=== PATIENT | female | born 1960 | race Caucasian/White ===

== ENCOUNTER 2019-05-06 15:47 | Emergency (ER) | payer BC ==
[2019-05-06 16:32] LABS: ABS Basophils 0.1 10^3/ul (0-0.2); ABS Eosinophils 0.1 10^3/ul (0-0.6); ABS Lymphocytes 2.1 10^3/ul (1.0-4.8); ABS Monocytes 0.6 10^3/ul (0-0.8); ABS Neutrophils 4.1 10^3/ul (1.5-7.7); Eosinophil % 1.6 %; Hematocrit 42 % (35-47); Hemoglobin 14.2 g/dL (12.0-16.0); Lymphocyte % 29.7 %; Mean Corpuscular HGB Conc 34 g/dL (31-36); Mean Corpuscular Hemoglobin 31 pg (27-31); Mean Corpuscular Volume 92 fL (80-97); Mean Platelet Volume 9.6 fL (7.4-10.4); Nucleated Red Blood Cells % 0.2; Platelet Count 188 10^3/uL (150-450); Red Blood Count 4.58 10^6 /uL (3.70-4.87); Red Cell Distribution Width 13 % (10-15)
[2019-05-06 16:38] LABS: INR 0.97 (0.82-1.09)
[2019-05-06 16:48] LABS: Albumin 4.6 g/dL (3.2-5.2); Albumin/Globulin Ratio 1.8 (1-3); BUN/Creatinine Ratio 24.7 (8-20); Calcium 10.1 mg/dL (8.6-10.3); EGFR African American 92.5 (>60); EGFR Non-African American 76.5 (>60); Globulin 2.6 g/dL (2-4); Total Bilirubin 0.7 mg/dL (0.2-1.0); Total Protein 7.2 g/dL (6.4-8.9)
--- NOTE | 2019-05-06 17:29 | ED ---
HPI Chest Pain - HPI Summary HPI Summary: A 58 y/o female presents to [facility] with a chief complaint of a dull chest pain and SOB for one week. Patient reports intermittent dull chest pain non exertional, as well as mild shortness of breath when she ambulates. Patient went to her primary care provider who did an EKG and sent her to the ED. Patient did not have EKG with her on arrival here. She denies any coughing, edema, dizziness or fatigue. She denies a Hx of SD, CHF or blood clots. She reports a FHx of cardiac disease, diabetes, blood clots. She is a former smoker , smoking 19 years ago. - History of Current Complaint Chief Complaint: EDChestPainROMI Time Seen by Provider: 05/06/19 17:11 Hx Obtained From: Patient Onset/Duration: Started Days Ago, Still Present Timing: Intermittent, Lasting Days Initial Severity: Mild Current Severity: Mild Pain Intensity: 0 Pain Scale Used: 0-10 Numeric Chest Pain Location: Diffuse Chest Pain Radiates: No Character: Dyspnea at Exertion Aggravating Factor(s): Exertion Alleviating Factor(s): Nothing Associated Signs and Symptoms: Positive: Shortness of Breath. Negative: Dizziness, Fever, Cough, Edema - Allergy/Home Medications Allergies/Adverse Reactions: Allergies Allergy/AdvReac Type Severity Reaction Status Date / Time No Known Allergies Allergy Verified 05/06/19 15:54 Home Medications: Home Medications [place]/D3/Mag11/Zinc/Mechanical Operator/Richard/Bor [Caltrate 600+D Plus] 1 tab PO DAILY 05/06/19 [ History Confirmed 05/06/19] Lisinopril TAB* [Prinivil TAB 5 MG*] 5 mg PO DAILY 05/06/19 [History Confirmed 05/06/19] [place]-3S/Dha/Epa/Fish Oil [Fish Oil 1,200 mg Softgel] 1 each PO DAILY 05/06/19 [ History Confirmed 05/06/19] Vitamin E CAP* 200 unit PO DAILY 05/06/19 [History Confirmed 05/06/19] PMH/Surg Hx/FS Hx/Imm Hx Endocrine/Hematology History: Denies: Hx Diabetes Cardiovascular History: Denies: Hx Myocardial Infarction - Cancer History Hx Chemotherapy: No Hx Radiation Therapy: No Infectious Disease History: No Infectious Disease History: Denies: Traveled Outside the [place] in Last 30 Days - Family History Known Family History: Positive: Cardiac Disease, Diabetes, Blood Disorder - Social History Alcohol Use: None Hx Substance Use: No Substance Use Type: Reports: None Smoking Status (MU): Former Smoker Review of Systems Negative: Fever, Fatigue Positive: Chest Pain Positive: Shortness Of Breath. Negative: Cough Negative: Edema Neurological: Negative - dizziness All Other Systems Reviewed And Are Negative: Yes Physical Exam - Summary Physical Exam Summary: Constitutional: Well-developed, Well-nourished, Alert. (-) Distressed Skin: Warm, Dry HENT: Normocephalic; Atraumatic Eyes: Conjunctiva normal Neck: Musculoskeletal ROM normal neck. (-) JVD, (-) Stridor, (-) Nuchal rigidity Cardio: Rhythm regular, rate normal, Heart sounds normal; Intact distal pulses; Radial pulses are 2+ and symmetric. (-) Murmur Pulmonary/Chest wall: Effort normal. (-) Respiratory distress, (-) Wheezes, (-) Rales Abd: Soft, (-) tenderness, (-) Distension, (-) Guarding, (-) Rebound Musculoskeletal: (-) Edema Lymph: (-) Cervical adenopathy Neuro: Alert, Oriented x3 Psych: Mood and affect Normal Triage Information Reviewed: Yes Vital Signs On Initial Exam: Initial Vitals Temp Pulse Resp BP Pulse Ox 97.8 F 71 20 145/74 100 05/06/19 15:53 05/06/19 15:53 05/06/19 15:53 05/06/19 15:53 05/06/19 15:53 Vital Signs Reviewed: Yes Diagnostics - Vital Signs Vital Signs Temp Pulse Resp BP Pulse Ox 05/06/19 15:53 97.8 F 71 20 145/74 100 - Laboratory Lab Results: Lab Results 05/06/19 05/06/19 05/06/19 Range/Units 16:19 16:19 16:19 WBC 7.0 (3.5-10.8) 10^3/uL RBC 4.58 (3.70-4.87) 10^6 /uL Hgb 14.2 (12.0-16.0) g/dL Hct 42 (35-47) % MCV 92 (80-97) fL MCH 31 (27-31) pg MCHC 34 (31-36) g/dL RDW 13 (10-15) % Plt Count 188 (150-450) 10^3/uL MPV 9.6 (7.4-10.4) fL Neut % (Auto) 59.0 % Lymph % (Auto) 29.7 % [place] % (Auto) 8.3 % Eos % (Auto) 1.6 % Baso % (Auto) 1.4 % Absolute Neuts (auto) 4.1 (1.5-7.7) 10^3/ul Absolute Lymphs (auto) 2.1 (1.0-4.8) 10^3/ul Absolute Monos (auto) 0.6 (0-0.8) 10^3/ul Absolute Eos (auto) 0.1 (0-0.6) 10^3/ul Absolute Basos (auto) 0.1 (0-0.2) 10^3/ul Absolute Nucleated RBC 0.0 10^3/ul Nucleated RBC % 0.2 INR (Anticoag Therapy) 0.97 (0.82-1.09) D-Dimer, Quantitative 241 H (Less Than 230) ng/mL Sodium 139 (135-145) mmol/L Potassium 4.0 (3.5-5.0) mmol/L Chloride 104 (101-111) mmol/L Carbon Dioxide 26 (22-32) mmol/L Anion Gap 9 (2-11) mmol/L BUN 19 (6-24) mg/dL Creatinine 0.77 (0.51-0.95) mg/dL Est GFR ( Amer) 92.5 (>60) Est GFR (Non-Af Amer) 76.5 (>60) BUN/Creatinine Ratio 24.7 H (8-20) Glucose 105 H (70-100) mg/dL Calcium 10.1 (8.6-10.3) mg/dL Total Bilirubin 0.70 (0.2-1.0) mg/dL AST 14 (13-39) U/L ALT 14 (7-52) U/L Alkaline Phosphatase 81 (34-104) U/L Troponin I 0.00 (<0.04) ng/mL Total Protein 7.2 (6.4-8.9) g/dL Albumin 4.6 (3.2-5.2) g/dL Globulin 2.6 (2-4) g/dL Albumin/Globulin Ratio 1.8 (1-3) Result Diagrams: 05/06/19 16:19 05/06/19 16:19 Lab Statement: Any lab studies that have been ordered have been reviewed, and results considered in the medical decision making process. - Radiology CXR Radiology Interpretation Completed By: Radiologist Summary of Radiographic Findings: Stigmata of probable obstructive lung disease. No acute pulmonary or cardiac process. evident. ED physician has reviewed this imaging report. - CT Chest/thorax CTA CT Interpretation Completed By: Radiologist Summary of CT Findings: 1. No visible acute pulmonary embolism. 2. No aortic dissection. ED physician has reviewed this imaging report. - EKG 15:49 Cardiac Rate: NL - 64 bpm EKG Rhythm: Sinus Rhythm Summary of EKG Findings: An EKG at 15:49 reveals normal sinus rhythm at 64 bpm, T-wave inversions in lead III. Re-Evaluation - Re-Evaluation First Eval Re-Evaluation Time: 19:30 Change: Improved - D/w patient negative CT findings of no pulmonary embolus and , troponin negative 2. EKG with T-wave inversions in lead 3 otherwise no abnormalities. Patient is low risk chest pain w heart score of two therefore will be discharged can schedule a stress test with her PCP or cardiology Chest Pain Course/Dx - Course Course Of Treatment: 58 y/o female presents with chest pain. Chest Pain DDX: The patient is well appearing, with stable vitals. Given the patient's clinical presentation, highest on differential is atypical CP vs PE. Although less likely, differential also includes the following: --Pneumothorax: Equal breath sounds, story inconsistent since gradual onset of symptoms. CXR shows no evidence of pneumothorax. Unlikely. --Mediastinitis or esophageal rupture: The history is not consistent, as the patient has had no recent history of significant wretching, instrumentation, or mediastinal surgeries. Unlikely. -- Aortic dissection: The patient does not describe the classical tearing chest pain radiating into the back, and the CXR does not show mediastinal widening or other signs of aortic dissection. Unlikely. --PE: Wells low risk, check D dimer. --ACS: The initial EKG shows no ischemic changes. The initial troponin is not elevated. Heart score - HEART Score. Based on a HEART score of 2 the patient has a low risk (<2% chance) of major adverse cardiac event within the next 6 weeks. I explained to the patient that based on the work-up today, her risk of heart attack is low and that he/she will be discharged with outpatient follow-up. Strict return precautions were discussed regarding worsening chest pain, new / atypical pain, shortness of breath, or any other serious concerns. Patient endorsed understanding and has no questions at this time. Source --. [place] BE, Six AJ, Som JAZZ, Ab MA, Mast EG, Jaimee A, Gustabo RF,. Wardeh AJ, Doug R, [place] R, Ninoska SH, van Shannon R, Yoana TP, van den Rinku F,. Em MJ, Jj JM, Lillian AW, Dodanita PA. A prospective validation of. the HEART score for chest pain patients at the emergency department. Int J. Cardiol. 2013 Jun 3;168(3):2153-8. 0-3: 2.5% risk of adverse cardiac event. In the HEART Score, these patients were discharged. (0.99% retrospective ) (1.7% prospective). 4-6: 20.3% risk of adverse cardiac event, suggesting admission to the hospital. 11.6% (16.6% prospective). =7: 72.7% risk of adverse cardiac event, suggesting early invasive measures with these patients. 65.2% (50.1% prospective) - Diagnoses Provider Diagnoses: Chest pain Discharge - Sign-Out/Discharge Documenting (check all that apply): Patient Departure - DC Patient Received Moderate/Deep Sedation with Procedure: No - Discharge Plan Condition: Stable Disposition: HOME Patient Education Materials: Chest Pain (ED) Referrals: Dionisio Gonzales MD [Primary Care Provider] - Jus Monsivais DO [Medical Doctor] - Additional Instructions: You were seen in the emergency department for chest pain. Your heart number was normal 2. Your CT did not show any evidence of blood clots. These call your primary care doctor to schedule stress test If any studies were not completed at the time of discharge you will be called with the relevant results. Please follow up with your primary care doctor in next 2-3 days and return to emergency department for worsening pain, trouble breathing, syncope or concerning symptoms. - Billing Disposition and Condition Condition: STABLE Disposition: Home - Attestation Statements Document Initiated by Scribe: Yes Documenting Scribe: Marcos Britt Provider For Whom Scribe is Documenting (Include Credential): Gurvinder Mae MD Scribe Attestation: I, Marcos Britt, scribed for Gurvinder Mae MD on 05/06/19 at 1938. Scribe Documentation Reviewed: Yes Provider Attestation: The documentation as recorded by the [email or web address] accurately reflects the service I personally performed and the decisions made by me, Gurvinder Mae MD Status of Scribe Document: Viewed
[2019-05-06] MEDS ORDERED: Iohexol 350* (CONTRAST) 500 ML MDV IV ONE (18:03)
[2019-05-06 20:42] VITALS: BP 154/79
== END 2019-05-06 20:41 | disposition home or self-care (01) ==
LOC: ED 15:47
DX: R07.9 Chest pain, unspecified (principal); Z87.891 Personal history of nicotine dependence; Z79.899 Other long term (current) drug therapy
CPT/HCPCS: 36415; 71046; 71275; 80053; 83880; 84484; 85025; 85379; 85610; 93005; 99282; Q9967